=== PATIENT | female | born 1970 | race American Indian/Alaskan Native ===

== ENCOUNTER 2022-04-08 15:42 | Outpatient (CLI) | payer MEDICAID ==
--- NOTE | 2022-04-08 16:43 | XRay Report ---
CHEST 2 VIEWS INDICATION / CLINICAL INFORMATION: EXERTIONAL DYSPNEA. COMPARISON: None available. FINDINGS: SUPPORT DEVICES: None. HEART / MEDIASTINUM: The heart size and pulmonary vasculature are normal. LUNGS / PLEURA: There are calcified paratracheal lymph nodes. No acute pulmonary or pleural abnormali ty. No pneumothorax. ADDITIONAL FINDINGS: No significant additional findings. IMPRESSION: No acute findings. Signer Name: Bran Ambrose MD Signed: 04/08/2022 4:39 PM Workstation Name: [id number]
== END 2022-04-08 15:43 | disposition home or self-care (01) ==
LOC: XRAY 15:42
DX: R06.09 Other forms of dyspnea (principal); R59.0 Localized enlarged lymph nodes
CPT/HCPCS: 71046